=== PATIENT | female | born 1995 | race African-American/Black ===

== ENCOUNTER 2018-05-09 02:17 | Inpatient (IN) | payer MEDICAID ==
[2018-05-09] MEDS ORDERED: MISOPROSTOL 0.2 MG TABLET ONE (02:34)
[2018-05-09] MEDS ORDERED: LIDOCAINE 1% INJ-PF (10 MG/ML) 30 ML SDV ONE (02:35)
[2018-05-09] MEDS ORDERED: OXYTOCIN/NORMAL SALINE 20 UNIT/1,000 ML RTUINJ ONE (02:35)
[2018-05-09 02:42] LABS: APPEARANCE,URINE SLIGHTLY-CLOUDY; BILIRUBIN,URINE NEGATIVE (NEGATIVE); COLOR,URINE YELLOW; GLUCOSE, URINE NEGATIVE (NEGATIVE); KETONES,URINE NEGATIVE (NEGATIVE); LEUKOCYTE ESTERASE,URINE LARGE (NEGATIVE); NITRITE,URINE NEGATIVE (NEGATIVE); PROTEIN,URINE NEGATIVE (NEGATIVE); URINE SPECIFIC GRAVITY 1.003; UROBILINOGEN,URINE NEGATIVE mg/dL (<2.0)
[2018-05-09] MEDS: RINGERS SOLUTION,LACTATED 1,000 ML IV PRN ×3 (02:51→06:38)
[2018-05-09 03:06] LABS: ABSOLUTE EOSINOPHILS # (AUTO) 0.1 10^3/uL (0.0-0.6); ABSOLUTE LYMPHOCYTES (AUTO) 1.8 10^3/uL (0.5-4.7); ABSOLUTE MONOCYTES (AUTO) 0.8 10^3/uL (0.1-1.4); ABSOLUTE NEUT (AUTO) 4.4 10^3/uL (1.7-8.2); BASOPHILS % (AUTO) 0.4 % (0-2); HEMATOCRIT 33.7 % (36.0-47.0); HEMOGLOBIN 11.9 g/dL (12.0-15.5); LYMPHOCYTES % (AUTO) 25.9 % (13-45); MEAN CORPUSCULAR HEMOGLOBIN 34.8 pg (27.0-33.4); MEAN CORPUSCULAR HGB CONC 35.3 g/dL (32.0-36.0); MEAN CORPUSCULAR VOLUME 98 fl (80-97); MONOCYTES % (AUTO) 10.7 % (3-13); PLATELET COUNT 131 10^3/uL (150-450); RED BLOOD COUNT 3.43 10^6/uL (3.72-5.28); RED CELL DISTRIBUTION WIDTH 12.5 % (11.5-14.0); TOTAL CELLS COUNTED % (AUTO) 100 %
[2018-05-09 05:19] LABS: URINE AMPHETAMINES SCREEN NEGATIVE; URINE BARBITURATES SCREEN NEGATIVE; URINE BENZODIAZEPINES SCREEN NEGATIVE; URINE COCAINE SCREEN NEGATIVE; URINE METHADONE SCREEN NEGATIVE; URINE PHENCYCLIDINE SCREEN NEGATIVE
[2018-05-09] MEDS ORDERED: EPHEDRINE SULFATE INJ 50 MG/1 ML AMPULE ONE (05:38)
[2018-05-09] MEDS ORDERED: LIDOCAINE 2%/EPINEPHRINE INJ 20 ML VIAL ONE (05:39)
[2018-05-09] MEDS ORDERED: FENTANYL/BUPIVACAINE/NS/PF 300 MCG/150 ML RTUINJ EPI ONE (05:39)
[2018-05-09] MEDS ORDERED: BUPIVACAINE HCL 0.25 % INJ/PF (2.5 MG/1 ML) 30 ML VIAL ONE (05:39)
[2018-05-09] MEDS ORDERED: LIDOCAINE 1.5%/EPINEPHRINE INJ 5 ML AMP ONE (05:41)
--- NOTE | 2018-05-09 05:43 | Admission Physical ---
Datetime Report Generated by CPN: 05/09/2018 05:43 CURRENT ADMISSION Chief Complaint: Uterine Contractions Indication for Induction: Not Applicable Admit Impression : Term, Intrauterine ; Active Labor Admit Plan: Admit to Unit; Initiate Labor Protocol ALLERGIES Medication Allergies: No Medication Allergies: No Known Allergies (01/07/2016) Latex: No Latex Allergies OBSTETRICAL HISTORY EDC: 05/04/2018 00:00 : 1 Para: 0 Term: 0 : 0 SAB: 0 IAB: 0 Ectopic: 0 Livin Cesareans: 0 VBACs: 0 Multiple Births: 0 Gestational Diabetes: No Rh Sensitization: No Incompetent Cervix: No MARIBEL: No Infertility: No ART Treatment: No Uterine Anomaly: No IUGR: No Hx Previous C/S: No Macrosomia: No Hx Loss/Stillborn: No PIH: No Hx : No Placenta Previa/Abruption: No Depression/PP Depression: No PTL/PROM: No Post Hemorrhage: No Current Procedures: Ultrasound; NST Obstetrical History Comments: G1: current SEE RECORDS Alcohol: No Marijuana : No Cocaine: No Other Illicit Drugs: No Cigarettes: Never Smoker. [id number] MEDICAL HISTORY Diabetes: No Blood Transfusion: No Pulmonary Disease (Asthma, TB): No Breast Disease: No Hypertension: No Medical Examiner Surgery: No Heart Disease: No Hosp/Surgery: No Autoimmune Disorder: No Anesthetic Complications: No Kidney Disease: No Abnormal Pap Smear: No Neuro/Epilepsy: No Psychiatric Disorders: No Other Medical Diseases: No Hepatitis/Liver Disease: No Significant Family History: No Varicosities/Phlebitis: No Trauma/Violence : No Thyroid Dysfunction: No INFECTIOUS HISTORY Gonorrhea: No Genital Herpes: No Chlamydia: No Tuberculosis: No Syphilis: No Hepatitis: No HIV/AIDS Exposure: No Rash or Viral Illness: No HPV: No PHYSICAL EXAM General: Normal HEENT: Normal Neurologic: Normal Thyroid: Normal Heart: Normal Lungs: Normal Breast: Normal Back: Normal Abdomen: Normal Genitourinary Exam: Normal Extremities: Normal DTRs: Normal Pelvic Type: Adequate Vital Signs: Reviewed; Within Normal Limits VAGINAL EXAM Dilatation: 6 Effacement: 90 Station: 0 MEMBRANES Pooling: Negative Membranes: Intact FETUS A EGA: 40.5 Monitoring: External US FHR- Baseline: 150 Variability: Moderate 6-25bpm Accelerations: 15X15 Decelerations: None FHR Category: Category I Estimated Weight (gm): 3200 Presentation: Vertex PLANS FOR LABOR AND DELIVERY Pain Management: Natural Feeding Preference: Formula Benefit of Breast Feed Discussed: Yes Circumcision: No INFORMED CONSENT Signature: with User ID: [email or web address]
[2018-05-09] MEDS ORDERED: ACETAMINOPHEN WITH CODEINE #3 TABLET PO PRN (09:29)
[2018-05-09] MEDS ORDERED: MEASLES,MUMPS&RUBELLA VACC/PF 0.5 ML VIAL SUBCUT PRN (09:29)
[2018-05-09] MEDS ORDERED: DIPH/PERTUSS(ACELL)/TETANUS VAC/PF 0.5 ML SYR (>=10YO) IM PRN (09:29)
[2018-05-09] MEDS ORDERED: OXYTOCIN/NORMAL SALINE 20 UNIT/1,000 ML RTUINJ IV PRN (09:29)
[2018-05-09] MEDS ORDERED: BENZOCAINE/MENTHOL AEROSOL SPRAY 56 ML TOP PRN (09:29)
[2018-05-09] MEDS ORDERED: DIBUCAINE 1% OINTMENT 56 GM TP PRN (09:29)
[2018-05-09] MEDS ORDERED: ZOLPIDEM TARTRATE 5 MG TABLET PO PRN (09:29)
--- NOTE | 2018-05-09 11:06 | Delivery Summary ---
Del Sum A-C Datetime Report Generated by CPN: 05/09/2018 11:05 DELIVERY PERSONNEL DELIVERY PERSONNEL: [id number] Delivery Doctor:: Nina Trammell CNM Labor and Delivery Nurse:: Emeli Trammell RN Labor and Delivery Nurse:: Cherise Fenton RN Nursery Nurse:: Bety Garcia RN Student Observers:: SN Pascual ZAMORA/EUGENIE: Janay Bridges CST Additional Personnel: : Dolores Greer RN MATERNAL INFORMATION Delivery Anesthesia: Epidural Medications After Delivery: Pitocin Bolus-Please Comment; Pitocin Drip 20 Units/1000ml NSS Maternal Complications: None Provider Comments: of viable male infant, MAREN. Anterior shoulder then the Right arm were delivered, then rotation of the chest to deliver the posterior arm. Baby crying and in stable condition, placed on pts abdoman. Cord clamped and cut after 90 seconds. Cord blood gas obtained. Placenta delivered, S/C/I. IV Pitocin infusing. FF w/ decreased lochia. 2nd Degree laceration repaired. Mother and baby left in stable condition. She plans to bottlefeed. Attending MD is Dr Jain LABOR SUMMARY EDC: 05/04/2018 00:00 No. Babies in Womb: 1 Attempted: No Labor Anesthesia: Epidural LABOR INFORMATION Reason for Induction: Not Applicable Complete Dilatation: 05/09/2018 08:09 Oxytocin: N/A Group B Beta Strep: Negative Antibiotics # of Doses: 0 Steroids Given: None Reason Steroids Not Administered: Not Applicable MEMBRANES Membranes Rupture Method: Artificial Rupture of Membranes: 05/09/2018 06:31 Length of Rupture (hr): 2.62 Amniotic Fluid Color: Moderate Meconium Amniotic Fluid Amount: Small STAGES OF LABOR Stage 2 hr: 0 Stage 2 min: 59 Stage 3 hr: 0 Stage 3 min: 3 VAGINAL DELIVERY Episiotomy: None Laceration #1: Perineal Laceration Extension #1: Second Degree Laceration Repair: Yes Laceration Repair Note: Small Second degree lacertation repaired using 3.[address] needle under epidural anesthesia. Pt tolerated procedure well. Sponge Count Correct: N/A Sharps Count Correct: N/A BABY A INFORMATION Infant Delivery Date/Time: 05/09/2018 09:08 Method of Delivery: Vaginal Born in Route : No : N/A Forceps: N/A Vacuum Extraction: N/A Shoulder Dystocia : No PRESENTATION/POSITION BABY A Presentation: Cephalic Cephalic Presentation: Vertex Vertex Position: DIRECT OA Breech Presentation: N/A PLACENTA INFORMATION BABY A Placenta Delivery Time : 05/09/2018 09:11 Placenta Method of Delivery: Spontaneous Placenta Status: Delivered SCORES BABY A Heart Rate 1 min: >100 bpm Resp Effort 1 min: Good Cry Reflex Irritability 1 min: Cough or Sneeze or Pulls Away Muscle Tone 1 min: Active Motion Color 1 min: Blue/Pale Resuscitation Effort 1 min: Tactile Stimulation SCORE 1 MIN: 8 Heart Rate 5 min: >100 bpm Resp Effort 5 min: Good Cry Reflex Irritability 5 min: Cough or Sneeze or Pulls Away Muscle Tone 5 min: Active Motion Color 5 min: Body Chauncey, Extremities Blue Resuscitation Effort 5 min: Tactile Stimulation SCORE 5 MIN: 9 INFORMATION BABY A Gestational Age at Delivery: 40.5 Gestational Status: Full Term- 39- 40.6 Weeks Infant Outcome : Liveborn Condition : Stable Sex: Male IDENTIFICATION BABY A Verification Date/Time: 05/09/2018 09:46 ID Band Number: [id number] Mother's Name Verified: Yes Infant RN Verifying Infant: N MAGDY, RN/ BL ROULUND, RN WEIGHT/LENGTH BABY A Infant Birthweight (gm): 3923 Weight (lb): 8 Infant Weight (oz): 10 Length (in): 20.00 Infant Length (cm): 50.80 CORD INFORMATION BABY A No. Cord Vessels: 3 Nuchal Cord : N/A Cord Blood Taken: Yes-For Eval (Mom's Blood Type - or O+) Suction: None ASSESSMENT BABY A Infant Complications: None Physical Findings at Delivery: Within Normal Limits Respirations: Appears Normal Skin to Skin: Yes Chief Deputy/ALS Called : No Infant Care By: Dayana GARCIA RN Transferred To: Remains with Mother BABY B INFORMATION : N/A SIGNATURES Assignment: Odin Jain MD Signature: with User ID: Elizabeth : with User ID: Elizabeth
[2018-05-09] MEDS: PRENATAL VITAMIN W DHA CAPSULE PO SCH (12:46)
[2018-05-09] MEDS: DOCUSATE SODIUM 100 MG CAPSULE PO SCH ×2 (12:46→17:22)
[2018-05-09] MEDS: FERROUS SULFATE 325 MG TABLET PO SCH ×2 (12:46→17:22)
[2018-05-09] MEDS: SENNOSIDES/DOCUSATE 8.6-50 MG 1 EACH TABLET PO SCH (12:47)
[2018-05-09] MEDS: IBUPROFEN 800 MG TABLET PO SCH ×2 (13:30→21:16)
[2018-05-10] MEDS: IBUPROFEN 800 MG TABLET PO SCH ×3 (06:27→23:41)
[2018-05-10 06:58] LABS: HEMATOCRIT 28.8 % (36.0-47.0); HEMOGLOBIN 10.2 g/dL (12.0-15.5); MEAN CORPUSCULAR HEMOGLOBIN 35.1 pg (27.0-33.4); MEAN CORPUSCULAR HGB CONC 35.4 g/dL (32.0-36.0); MEAN CORPUSCULAR VOLUME 99 fl (80-97); PLATELET COUNT 103 10^3/uL (150-450); RED BLOOD COUNT 2.91 10^6/uL (3.72-5.28); RED CELL DISTRIBUTION WIDTH 12.4 % (11.5-14.0); WHITE BLOOD COUNT 7.4 10^3/uL (4.0-10.5)
[2018-05-10] MEDS: SENNOSIDES/DOCUSATE 8.6-50 MG 1 EACH TABLET PO SCH (10:08)
[2018-05-10] MEDS: PRENATAL VITAMIN W DHA CAPSULE PO SCH (10:08)
[2018-05-10] MEDS: DOCUSATE SODIUM 100 MG CAPSULE PO SCH ×2 (10:08→17:46)
[2018-05-10] MEDS: FERROUS SULFATE 325 MG TABLET PO SCH ×2 (10:08→17:46)
--- NOTE | 2018-05-10 11:37 | PDOC PROGRESS REPORT ---
Subjective-OB Progress Note for:: 05/10/18 Subjective: 22yo G1 now P1 s/p ppd 1. Ambulating and voiding without difficulty.Reports pain well controlled with medication, bottle feeding, no concerns today. Physical Exam (OB) Vital Signs: Temp Pulse Resp BP Pulse Ox 98.2 F 64 16 129/68 H 99 05/10/18 07:56 05/10/18 07:56 05/10/18 07:56 05/10/18 07:56 05/10/18 07:56 Intake & Output 05/09/18 05/10/18 05/11/18 06:59 06:59 06:59 Intake Total 473 240 Balance 473 240 Weight 65.5 kg - General General Appearance: Appears well In distress: None - PIH/Pre-Eclampsia Clonus: Negative Headache: Absent Epigastric Pain: No Visual Changes: No - Closure Type: Surgical Glue - Episiotomy/Laceration Site Condition: Well Approximated - Lochia Lochia Amount: Scant < 10 ml Lochia Color: Rubra/Red - Abdomen Description: Soft Hernia Present: No Fundal Description: Firm, Midline Fundal Height: u/u - u/2 - Respiratory Respiratory Status: No respiratory distress - Extremities Upper extremity: Normal inspection Lower extremities: Normal inspection - Neurological Cognition: Normal Orientation: AAOx4 - Psychological Associated symptoms: Normal affect, Normal mood Objective-Diagnostic Laboratory: 05/10/18 06:17 05/10/18 06:17 WBC 7.4 RBC 2.91 L Hgb 10.2 L Hct 28.8 L MCV 99 H MCH 35.1 H MCHC 35.4 RDW 12.4 Plt Count 103 L Assessment and Plan(PN) - Assessment and Plan (1) Thrombocytopenia affecting Is this a current diagnosis for this admission?: Yes Plan: monitor for increased bleeding/bruising, will repeat CBC in the AM (2) Acute blood loss anemia Is this a current diagnosis for this admission?: Yes Plan: increase dietary iron and FeSO4 BID (3) Laceration of perineum during delivery, Is this a current diagnosis for this admission?: Yes Plan: Continue to monitor for s/s of infection (4) Delivery normal Is this a current diagnosis for this admission?: Yes Plan: Routine pp care - Time Spent with Patient Time with patient: Less than 15 minutes Medications reviewed and adjusted accordingly: Yes - Disposition Anticipated Discharge: Home Within: within 24 hours
[2018-05-11] MEDS: IBUPROFEN 800 MG TABLET PO SCH (06:52)
[2018-05-11 07:05] LABS: HEMATOCRIT 28.1 % (36.0-47.0); HEMOGLOBIN 10.2 g/dL (12.0-15.5); MEAN CORPUSCULAR HEMOGLOBIN 35.5 pg (27.0-33.4); MEAN CORPUSCULAR HGB CONC 36.2 g/dL (32.0-36.0); MEAN CORPUSCULAR VOLUME 98 fl (80-97); PLATELET COUNT 107 10^3/uL (150-450); RED BLOOD COUNT 2.86 10^6/uL (3.72-5.28); RED CELL DISTRIBUTION WIDTH 12.5 % (11.5-14.0); WHITE BLOOD COUNT 7.7 10^3/uL (4.0-10.5)
[2018-05-11] MEDS: DOCUSATE SODIUM 100 MG CAPSULE PO SCH (09:34)
[2018-05-11] MEDS: PRENATAL VITAMIN W DHA CAPSULE PO SCH (09:34)
[2018-05-11] MEDS: FERROUS SULFATE 325 MG TABLET PO SCH (09:34)
[2018-05-11] MEDS: SENNOSIDES/DOCUSATE 8.6-50 MG 1 EACH TABLET PO SCH (09:34)
--- NOTE | 2018-05-11 11:09 | PDOC DISCHARGE SUMMARY ---
Final Diagnosis Discharge Date: 05/11/18 - Final Diagnosis (1) Acute blood loss anemia Is this a current diagnosis for this admission?: Yes (2) Delivery normal Is this a current diagnosis for this admission?: Yes (3) Laceration of perineum during delivery, Is this a current diagnosis for this admission?: Yes (4) Thrombocytopenia affecting Is this a current diagnosis for this admission?: Yes Discharge Data - Discharge Medication Home Medications: No Home Medications 05/09/18 Reason(s) for Admission: Onset of Labor Procedures: NST Intrapartum Procedure(s): Spontaneous Vaginal Delivery Complication(s): Laceration-Perineal Laceration-Degree: 2nd - Diagnosis Test Laboratory: Temp Pulse Resp BP Pulse Ox 98.3 F 66 18 115/57 L 99 05/10/18 19:38 05/10/18 19:38 05/10/18 19:38 05/10/18 19:38 05/10/18 19:38 05/09/18 05/09/18 05/10/18 02:20 02:54 06:17 RBC 3.43 L 2.91 L Hgb 11.9 L 10.2 L Hct 33.7 L 28.8 L Urine Opiates Screen NEGATIVE 05/11/18 06:45 RBC 2.86 L Hgb 10.2 L Hct 28.1 L Urine Opiates Screen - Discharge information/Instructions Discharge Activity: Balance Activity w/Rest, Pelvic Rest Discharge Diet: Regular Disposition: HOME, SELF-CARE Follow up with: [facility] in: 4, Weeks
[2018-05-11 11:41] VITALS: BP 118/63
== END 2018-05-11 13:00 | disposition home or self-care (01) | DRG 806 ==
LOC: LC 02:17 → LR 02:36 → 2S 12:15
PROVIDERS: ADMIT Obstetrics & Gynecology; ATTEND Obstetrics & Gynecology
PROC: 10E0XZZ Delivery of Products of Conception, External Approach (ICD-10-PCS; principal; 2018-05-09)
PROC: 0KQM0ZZ Repair Perineum Muscle, Open Approach (ICD-10-PCS; 2018-05-09)
PROC: 4A1HXCZ Monitoring of Products of Conception, Cardiac Rate, External Approach (ICD-10-PCS; 2018-05-09)
DX: O70.1 Second degree perineal laceration during delivery (principal); O99.12 Other diseases of the blood and blood-forming organs and certain disorders involving the immune mechanism complicating childbirth; Z37.0 Single live birth; O77.0 Labor and delivery complicated by meconium in amniotic fluid; O99.334 Smoking (tobacco) complicating childbirth; F17.210 Nicotine dependence, cigarettes, uncomplicated; Z3A.40 40 weeks gestation of pregnancy; O99.02 Anemia complicating childbirth; D64.9 Anemia, unspecified
CPT/HCPCS: 36415; 80307; 81005; 85025; 85027; 86592; 86850; 86900; 86901; J2590; J3010; J3490

== ENCOUNTER 2018-09-16 16:20 | Emergency (ER) | payer MEDICAID ==
--- NOTE | 2018-09-16 16:56 | ER Document Report ---
ED Medical Screen (RME) - General Chief Complaint: Vag Bleeding, +preg <12wks Stated Complaint: MISCARRIAGE COMPLICATIONS Time Seen by Provider: 09/16/18 16:53 Primary Care Provider: MARIAJOSE VORA MD [Primary Care Provider] - Follow up as needed TRAVEL OUTSIDE OF THE [place] IN LAST 30 DAYS: No - HPI Notes: 09/16/18 16:55 Patient is a 23-year-old female who presents complaining of continued vaginal bleeding and seeing pieces of tissue after having a spontaneous miscarriage 2 days ago. Patient states that she did not know she was at that time and her aunt thinks that she may have been around 6 weeks. Patient states that she does continue to have intermittent cramping. She is able to eat and drink without difficulty. She is urinating normally and having normal bowel movements denies CRUZ, fever, neck pain, URI, CP, SOB, dysuria, back pain, or rash. I have treated and performed a rapid initial assessment of this patient. A comprehensive ED assessment and evaluation of the patient, analysis of test results and completion of medical decision making process will be conducted by additional ED providers. PHYSICAL EXAMINATION: GENERAL: Well-appearing, well-nourished and in no acute distress. A&Ox4. Answers questions appropriately. LUNGS: Breath sounds clear to auscultation bilaterally and equal. No wheezes rales or rhonchi. HEART: Regular rate and rhythm without murmurs, rubs, gallops. ABDOMEN: Soft, nondistended abdomen. No guarding, no rebound. Normal bowel sounds present. No CVA tenderness bilaterally. grossly nontender (cannot elicit thorough abd exam w/o bed, however). - Related Data Allergies/Adverse Reactions: No Known Allergies Allergy (Verified 09/16/18 16:25) Physical Exam - Vital signs Vitals: Temp Pulse Resp BP Pulse Ox 98.0 F 82 12 134/90 H 97 09/16/18 16:31 09/16/18 16:31 09/16/18 16:31 09/16/18 16:31 09/16/18 16:31 Course - Vital Signs Vital signs: Temp Pulse Resp BP Pulse Ox 98.0 F 82 12 134/90 H 97 09/16/18 16:31 09/16/18 16:31 09/16/18 16:31 09/16/18 16:31 09/16/18 16:31 Doctor's Discharge - Discharge Referrals: MARIAJOSE VORA MD [Primary Care Provider] - Follow up as needed
[2018-09-16 17:20] LABS: ABSOLUTE EOSINOPHILS # (AUTO) 0.1 10^3/uL (0.0-0.6); ABSOLUTE LYMPHOCYTES (AUTO) 2.6 10^3/uL (0.5-4.7); ABSOLUTE MONOCYTES (AUTO) 0.4 10^3/uL (0.1-1.4); BASOPHILS % (AUTO) 0.5 % (0-2); EOSINOPHILS % (AUTO) 1.2 % (0-6); HEMATOCRIT 40.5 % (36.0-47.0); HEMOGLOBIN 13.7 g/dL (12.0-15.5); LYMPHOCYTES % (AUTO) 51.3 % (13-45); MEAN CORPUSCULAR HEMOGLOBIN 32.3 pg (27.0-33.4); MEAN CORPUSCULAR HGB CONC 33.9 g/dL (32.0-36.0); MEAN CORPUSCULAR VOLUME 95 fl (80-97); MONOCYTES % (AUTO) 7.5 % (3-13); PLATELET COUNT 183 10^3/uL (150-450); RED BLOOD COUNT 4.24 10^6/uL (3.72-5.28); RED CELL DISTRIBUTION WIDTH 13.1 % (11.5-14.0); SEGMENTED NEUTROPHILS % (AUTO) 39.5 % (42-78); TOTAL CELLS COUNTED % (AUTO) 100 %; WHITE BLOOD COUNT 5.1 10^3/uL (4.0-10.5)
[2018-09-16 17:37] LABS: ANION GAP 10 (5-19); BLOOD UREA NITROGEN 17 mg/dL (7-20); CALCIUM 9.7 mg/dL (8.4-10.2); CARBON DIOXIDE 26 mmol/L (22-30); CHLORIDE 106 mmol/L (98-107); GLUCOSE 86 mg/dL (75-110); POTASSIUM 4.1 mmol/L (3.6-5.0)
--- NOTE | 2018-09-16 17:37 | ER Document Report ---
ED General - General Chief Complaint: Vag Bleeding, +preg <12wks Stated Complaint: MISCARRIAGE COMPLICATIONS Time Seen by Provider: 09/16/18 16:53 Primary Care Provider: MARIAJOSE VORA MD [Primary Care Provider] - Follow up in 3-5 days Mode of Arrival: Ambulatory Information source: Patient Notes: Patient presents emergency department with complaints of recent miscarriage. She reports that she is 4 months ago with her son vaginal . She reports that she received a Depo-Provera injection 1 month ago. She was informed that she would be spotting. She reports approximately 2 weeks ago she started bleeding. She reports she was going through 3-4 tampons a day. Recently she started bleeding heavier. She reports she experienced a garcia of blood 2 days ago. She went to the shower and she said something fell out. When she looked down on the ground it looked like it had a spine, eye and head. She called her aunt to look at it and they both thought she had had a miscarriage. She is not taking any type of test. She denies other symptoms such as vaginal discharge. She denies pain with void. Denies other symptoms such as fever vomiting diarrhea. Denies abdominal cramping. TRAVEL OUTSIDE OF THE [place] IN LAST 30 DAYS: No - HPI Onset: Other Onset/Duration: Persistent Quality of pain: No pain Severity: None Associated symptoms: None Exacerbated by: Denies Relieved by: Denies Similar symptoms previously: No Recently seen / treated by doctor: No - Related Data Allergies/Adverse Reactions: No Known Allergies Allergy (Verified 09/16/18 16:25) Past Medical History - General Information source: Patient Last Menstrual Period: now - Social History Smoking Status: Current Every Day Smoker Cigarette use (# per day): Yes Frequency of alcohol use: Occasional Drug Abuse: None Lives with: Family Family History: None Patient has suicidal ideation: No Patient has homicidal ideation: No - Medical History Medical History: Negative Surgical Hx: Negative Review of Systems - Review of Systems Notes: Review HPI for review of systems., All other systems negative Physical Exam - Vital signs Vitals: Temp Pulse Resp BP Pulse Ox 98.0 F 82 12 134/90 H 97 09/16/18 16:31 09/16/18 16:31 09/16/18 16:31 09/16/18 16:31 09/16/18 16:31 - Notes Notes: PHYSICAL EXAMINATION: GENERAL: Well-appearing and in no acute distress HEAD: Atraumatic, normocephalic. EYES: Pupils equal round extraocular movements intact, sclera anicteric, conjunctiva are normal. ENT: nares patent, Moist mucous membranes. NECK: Normal range of motion, supple without lymphadenopathy LUNGS: CTAB and equal. No wheezes rales or rhonchi. HEART: Regular rate and rhythm without murmurs ABDOMEN: Soft, no tenderness. No guarding, no rebound BACK: Denies back pain, giggles during exam EXTREMITIES: Normal range of motion, no pitting edema. NEUROLOGICAL: Cranial nerves grossly intact. Normal sensory/motor exams. PSYCH: Normal mood, normal affect. SKIN: Warm, Dry, normal turgor, no rashes or lesions noted Course - Re-evaluation Re-evalutation: 09/16/18 18:35 This 23-year-old healthy individual presents emergency department with complaints of heavy vaginal bleeding for the past 2 weeks increase the last 2 days. Reports that she believes she may have had a miscarriage. She did not take a test. Reports that she had a double injection 1 month ago. Reports she saw a clot/substance fall out of her when she was taking a shower and it looked like it had a spine head and eye. Labs unremarkable beta-hCG is negative. Ultrasound shows no free fluid no IUP. Patient is smiling and laughing in bed. No complaints of pain. Patient denies pain with void. Denied vaginal discharge. Patient was instructed on all results. Instructed on the importance of follow-up with her primary care provider or the health department for recheck within 1 week. She was instructed to return here for increased bleeding and she verbalized understanding to all instructions. Dictation of this chart was performed using voice recognition software; therefore, there may be some unintended grammatical errors. - Vital Signs Vital signs: Temp Pulse Resp BP Pulse Ox 98.0 F 82 12 134/90 H 97 09/16/18 16:31 09/16/18 16:31 09/16/18 16:31 09/16/18 16:31 09/16/18 16:31 - Laboratory Result Diagrams: 09/16/18 17:03 09/16/18 17:03 Laboratory results interpreted by me: 09/16/18 09/16/18 16:58 17:03 Seg Neutrophils % 39.5 L Lymphocytes % 51.3 H Urine Protein 30 H Urine Blood LARGE H Ur Leukocyte Esterase TRACE H - Diagnostic Test Radiology reviewed: Image reviewed, Reports reviewed - EXAM DESCRIPTION: U/S NON OB PEL TV W/DOPPLER COMPLETED DATE/TIME: 09/16/2018 5:47 pm REASON FOR STUDY: recent miscarriage at home, bleeding COMPARISON: None. TECHNIQUE: Grayscale images acquired of the pelvis via transvaginal approach and recorded on PACS. Additional selected color Doppler and spectral images recorded. LIMITATIONS: Overlying bowel gas. FINDINGS: UTERUS: Measures 6.6 x 3.8 x 4.6 cm. No focal myometrial mass was seen. ENDOMETRIAL STRIPE: Measures 8.8 mm in double wall thickness. CERVIX: Measures 2.0 cm in length. RIGHT OVARY AND DOPPLER: Measures 3.7 x 2.5 x 3.1 cm. Flow by Doppler was shown to the right ovary. Small follicles are noted. LEFT OVARY AND DOPPLER: Ovary not visualized, obscured by overlying bowel gas. FREE FLUID: None noted. IMPRESSION: Nonvisualized left ovary. Otherwise, no acute findings. Discharge - Discharge Clinical Impression: Vaginal bleeding Condition: Stable Disposition: HOME, SELF-CARE Instructions: [facility] Department, Vaginal Bleeding ([facility]) Additional Instructions: *You have been evaluated for vaginal bleeding *Monitor your bleeding *Follow up with the health department within one week for recheck *Avoid sexual intercourse until follow up *Return to ED for worsening condition, changes, needs, increased bleeding Monitor your blood pressure. Your blood pressure was elevated today. This may be because you were anxious, in pain or because you need medication. It is important to follow up with your primary care provider for full evaluation. Forms: Elevated Blood Pressure Referrals: MARIAJOSE VORA MD [Primary Care Provider] - Follow up in 3-5 days
[2018-09-16 17:42] LABS: APPEARANCE,URINE CLEAR; BILIRUBIN,URINE NEGATIVE (NEGATIVE); COLOR,URINE YELLOW; GLUCOSE, URINE NEGATIVE (NEGATIVE); KETONES,URINE NEGATIVE (NEGATIVE); LEUKOCYTE ESTERASE,URINE TRACE (NEGATIVE); NITRITE,URINE NEGATIVE (NEGATIVE); PROTEIN,URINE 30 mg/dL (NEGATIVE); URINE SPECIFIC GRAVITY 1.021; UROBILINOGEN,URINE NEGATIVE mg/dL (<2.0)
--- NOTE | 2018-09-16 18:01 | RADIOLOGY REPORT (SQ) ---
EXAM DESCRIPTION: U/S NON OB PEL TV W/DOPPLER COMPLETED DATE/TIME: 09/16/2018 5:47 pm REASON FOR STUDY: recent miscarriage at home, bleeding COMPARISON: None. TECHNIQUE: Grayscale images acquired of the pelvis via transvaginal approach and recorded on PACS. A dditional selected color Doppler and spectral images recorded. LIMITATIONS: Overlying bowel gas. FINDINGS: UTERUS: Measures 6.6 x 3.8 x 4.6 cm. No focal myometrial mass was seen. ENDOMETRIAL STRIPE: Measures 8.8 mm in double wall thickness. CERVIX: Measures 2.0 cm in length. RIGHT OVARY AND DOPPLER: Measures 3.7 x 2.5 x 3.1 cm. Flow by Doppler was shown to the right ovary. Small follicles are noted. LEFT OVARY AND DOPPLER: Ovary not visualized, obscured by overlying bowel gas. FREE FLUID: None noted. IMPRESSION: Nonvisualized left ovary. Otherwise, no acute findings. TECHNICAL DOCUMENTATION: JOB ID: [id number] [employer]- All Rights Reserved Rev-07/22 Reading location - IP/workstation name: [email or web address]
[2018-09-16 19:19] VITALS: BP 126/78
== END 2018-09-16 19:19 | disposition home or self-care (01) ==
LOC: ER 16:20
DX: N93.9 Abnormal uterine and vaginal bleeding, unspecified (principal); F17.200 Nicotine dependence, unspecified, uncomplicated
CPT/HCPCS: 36415; 76830; 80048; 81001; 84702; 85025; 93976; 99284